=== PATIENT | male | born 1960 | race Caucasian/White ===

== ENCOUNTER 2016-06-26 23:48 | Emergency (ER) | payer OTHER ==
[~2016-06-26] VITALS: Ht 167.6 cm; Wt 90.9 kg
[~2016-06-26 23:48] MED LIST: ABILIFY; ABILIFY10 MG PO; ABILIFY15 MG PO; ABILIFY2 MG PO; ABILIFY20 MG PO; ABILIFY5 MG PO; AMLODIPINE BESYL5 MG PO; ARIPIPRAZOLE2 MG PO; ATIVAN1 MG PO; Ambien PO; BACTRIM,SEPT1 TABLET PO; BENADRYL50 MG PO; BENZTROPINE MESY1 MG PO; BUPROPION HCL100 M1 PO; BUPROPION HCL150 M2 PO; CLEOCIN150 MG PO; COGENTIN1 MG PO; CYMBALTA60 MG PO; Cyclobenzaprine Hcl PO; Cymbalta PO; DOXYCYCLINE HY100 MG PO; ENDOCET 5-3251 EACH PO; EXCEDRIN EXTRA1 EACH PO; FLEXERIL10 MG PO; FUROSEMIDE20 MG PO; Flexeril PO; HYDROCODON-ACE1 EAC9 PO; HYDROMORPHONE HC2 MG PO; INDERAL10 MG PO; KLONOPIN2 MG PO; LISINOPRIL5 MG PO; LORTAB 5-325 M1 EACH PO; LYRICA100 MG PO; LYRICA25 MG PO; Levothroid,Synthroid PO; MELOXICAM15 MG PO; MELOXICAM7.5 MG PO; METHYLPHENIDATE10 M1 PO; METHYLPHENIDATE20 MG PO; MOBIC15 MG PO; NAPROSYN500 MG PO; NORCO 5/3251 TABLET PO; ONE-A-DAY ESSE1 EAC1 PO; PANTOPRAZOLE SO40 MG PO; PROPRANOLOL; PROPRANOLOL HCL40 MG PO; QUETIAPINE FUM300 MG PO; RISPERIDONE1 MG PO; RITALIN LA40 MG PO; RITALIN-SR20 MG PO; RITALIN20 MG PO; ROPINIROLE HCL1 MG PO; ULTRAM50 MG PO; VALIUM5 MG PO; VICODIN HP 10-1 EACH PO; VICODIN HP 11 TABLET PO; VICODIN,LORT1 TABLET PO; VIIBRYD20 MG PO; VIIBRYD40 MG PO; WELLBUTRIN; WELLBUTRIN PO; WELLBUTRIN SR150 MG PO; WELLBUTRIN100 MG; WELLBUTRIN75 MG PO; XANAX1 MG PO; ZOLPIDEM TARTRA10 MG PO
[2016-06-27] MEDS ORDERED: CLEOCIN300 MG PO (01:54)
[2016-06-27] MEDS ORDERED: PERCOCET 5/31 TABLET PO (01:54)
[2016-06-27 02:55] VITALS: BP 135/82
== END 2016-06-27 02:56 | disposition home or self-care (01) ==
LOC: EME 23:48
PROC: 0H9EXZZ Drainage of Left Lower Arm Skin, External Approach (ICD-10-PCS; principal; 2016-06-26)
DX: L02.414 Cutaneous abscess of left upper limb (principal); F19.90 Other psychoactive substance use, unspecified, uncomplicated
CPT/HCPCS: 87070; 87075; 87076; 87205; 99281; 99284

== ENCOUNTER 2016-06-29 04:37 | Emergency (ER) | payer OTHER ==
[~2016-06-29] VITALS: Ht 167.6 cm; Wt 93.3 kg
[~2016-06-29 04:37] MED LIST changes: +CLEOCIN300 MG PO; +PERCOCET 5/31 TABLET PO
[2016-06-29 06:53] VITALS: BP 132/80
== END 2016-06-29 06:54 | disposition home or self-care (01) ==
LOC: EME 04:37
DX: L02.414 Cutaneous abscess of left upper limb (principal); Z48.01 Encounter for change or removal of surgical wound dressing; F11.10 Opioid abuse, uncomplicated
CPT/HCPCS: 99281; 99284

== ENCOUNTER 2016-08-31 21:35 | Emergency (ER) | payer OTHER ==
[~2016-08-31] VITALS: Ht 167.6 cm; Wt 88.0 kg
[2016-08-31 22:44] LABS: EOSINOPHIL COUNT 0.2 K/uL (0-0.3); HEMATOCRIT 46.5 % (38.0-50.0); IMMATURE GRANULOCYTE (%) 0.2 % (0.0-0.7); INSTRUMENT ABS NEUTROPHIL CT 4.2 K/uL; LYMPHOCYTE COUNT 3.8 K/uL (1.0-2.8); MCH 25.6 PG (29.0-34.0); MCHC 31.8 G/DL (30.0-36.0); MCV 80.6 FL (86-99); MONOCYTE COUNT 0.8 K/uL (0-0.8); NEUTROPHIL (%) 46.8 % (45-76); NEUTROPHIL COUNT 4.2 K/uL (1.8-6.4); RBC DIS.WIDTH-CV 14.3 % (11.8-14.6); RBC DIS.WIDTH-SD 41.7 % (39-53); RED BLOOD COUNT 5.77 M/uL (4.00-5.50); WHITE BLOOD COUNT 9.1 K/uL (4.1-10.2)
[2016-08-31 22:46] LABS: BILIRUBIN NEGATIVE; BLOOD NEGATIVE; COLOR YELLOW ((YELLOW)); GLUCOSE (STRIP) NEGATIVE; KETONES NEGATIVE; LEUKOCYTES NEGATIVE; NITRITE NEGATIVE; PROTEIN (STRIP) NEGATIVE; SPECIFIC GRAVITY 1.025 (1.000-1.030); UROBILINOGEN 0.2 MG/DL (0.2-1.0)
[2016-08-31 22:47] LABS: ADD MIUA? NO
[2016-08-31 22:55] LABS: AMPHETAMINE NEGATIVE (500 ng/mL); BARBITURATES NEGATIVE (200 ng/mL); BENZODIAZEPINES NEGATIVE (150 ng/mL); COCAINE PRESUMPTIVE POSITIVE (150 ng/mL); INTERNAL CONTROLS VALID? YES; METHADONE PRESUMPTIVE POSITIVE (200 ng/mL); METHAMPHETAMINE NEGATIVE (500 ng/mL); OPIATES (MORPHINE) PRESUMPTIVE POSITIVE (100 ng/mL); OXYCODONE NEGATIVE (100 ng/mL); PHENCYCLIDINE NEGATIVE (25 ng/mL); PROPOXYPHENE NEGATIVE (300 ng/mL); THC CANNABINOIDS PRESUMPTIVE POSITIVE (50 ng/mL); TRICYCLIC ANTIDEPRESSANTS NEGATIVE (300 ng/mL)
[2016-08-31 22:56] LABS: ADD MEDTOX COMMENT Y
[2016-08-31 22:57] LABS: CHLORIDE 106 mEq/L (99-109); POTASSIUM 4.4 mEq/L (3.7-5.4); SODIUM 141 mEq/L (136-147)
[2016-08-31 22:59] LABS: GLUCOSE 68 mg/dL (70-99)
[2016-08-31 23:00] LABS: ANION GAP 9 MEQ/L (2-14)
[2016-08-31 23:01] LABS: TOTAL BILIRUBIN 0.4 mg/dL (0.0-1.0)
[2016-08-31 23:02] LABS: ALKALINE PHOSPHATASE 101 IU/L (3-129)
[2016-08-31 23:03] LABS: GFR ESTIMATE (CALCULATED) > 59 mL/min/
[2016-08-31 23:04] LABS: UREA NITROGEN (BUN) 17 mg/dL (9-23)
[2016-08-31 23:05] LABS: CREATINE KINASE 210 IU/L (1-294)
[2016-08-31 23:56] LABS: MEAN PLAT.VOLUME 9.3 uM^3 (9.0-12.4); PLAT.SUFFICIENCY ADEQUATE; PLATELET COUNT 236 K/uL (156-360)
[2016-09-01] MEDS ORDERED: VALIUM5 MG PO (00:34)
[2016-09-01] MEDS ORDERED: KEFLEX500 MG PO (00:35)
[2016-09-01] MEDS ORDERED: BACTRIM,SEPT1 TABLET PO (00:35)
[2016-09-01 02:14] VITALS: BP 161/90
== END 2016-09-01 02:26 | disposition home or self-care (01) ==
LOC: EME 21:35
PROVIDERS: Physician Assistant
DX: L03.114 Cellulitis of left upper limb (principal); R25.2 Cramp and spasm; S40.812A Abrasion of left upper arm, initial encounter; X58.XXXA Exposure to other specified factors, initial encounter; Z91.5 Personal history of self-harm
CPT/HCPCS: 80053; 81003; 82550; 83605; 84999; 85025; 85027; 87040; 87077; 87186; 87801; 99281; 99285; J1885; J3370; J7030

== ENCOUNTER 2016-09-02 08:19 | Emergency (ER) | payer OTHER ==
[~2016-09-02] VITALS: Ht 167.6 cm; Wt 91.0 kg
[~2016-09-02 08:19] MED LIST changes: +KEFLEX500 MG PO
[2016-09-02 09:57] VITALS: BP 145/82
== END 2016-09-02 10:17 | disposition home or self-care (01) ==
LOC: EME 08:19
DX: L03.114 Cellulitis of left upper limb (principal); R78.81 Bacteremia; S50.812A Abrasion of left forearm, initial encounter; X78.9XXA Intentional self-harm by unspecified sharp object, initial encounter; F32.9 Major depressive disorder, single episode, unspecified; I10 Essential (primary) hypertension
CPT/HCPCS: 99281; 99284

== ENCOUNTER 2016-12-29 17:07 | Emergency (ER) | payer OTHER ==
[~2016-12-29] VITALS: Ht 167.6 cm; Wt 90.9 kg
[2016-12-29] MEDS ORDERED: WELLBUTRIN75 MG PO (17:23)
[2016-12-29] MEDS ORDERED: WELLBUTRIN SR150 MG PO (17:23)
[2016-12-29] MEDS ORDERED: ABILIFY2 MG PO (17:24)
[2016-12-29 17:58] LABS: EOSINOPHIL (%) 2.9 % (0-5); EOSINOPHIL COUNT 0.2 K/uL (0-0.3); HEMATOCRIT 38.1 % (38.0-50.0); IMMATURE GRANULOCYTE (%) 0.3 % (0.0-0.7); INSTRUMENT ABS NEUTROPHIL CT 3.8 K/uL; LYMPHOCYTE COUNT 2.7 K/uL (1.0-2.8); MCH 26.5 PG (29.0-34.0); MCHC 32.5 G/DL (30.0-36.0); MCV 81.4 FL (86-99); MEAN PLAT.VOLUME 9.3 uM^3 (9.0-12.4); MONOCYTE (%) 8.9 % (3-12); MONOCYTE COUNT 0.7 K/uL (0-0.8); NEUTROPHIL (%) 51.2 % (45-76); NEUTROPHIL COUNT 3.8 K/uL (1.8-6.4); PLATELET COUNT 214 K/uL (156-360); RBC DIS.WIDTH-CV 15.2 % (11.8-14.6); RBC DIS.WIDTH-SD 45.2 % (39-53); RED BLOOD COUNT 4.68 M/uL (4.00-5.50); WHITE BLOOD COUNT 7.3 K/uL (4.1-10.2)
[2016-12-29 18:05] LABS: CHLORIDE 108 mEq/L (99-109); POTASSIUM 3.7 mEq/L (3.7-5.4); SODIUM 140 mEq/L (136-147)
[2016-12-29 18:07] LABS: GLUCOSE 105 mg/dL (70-99)
[2016-12-29 18:09] LABS: ANION GAP 7 MEQ/L (2-14)
[2016-12-29 18:10] LABS: SERUM ETHYL ALCOHOL < 10 mg/dL
[2016-12-29 18:11] LABS: GFR ESTIMATE (CALCULATED) > 59 mL/min/
[2016-12-29 18:12] LABS: UREA NITROGEN (BUN) 16 mg/dL (9-23)
[2016-12-29 19:02] LABS: ADD MEDTOX COMMENT Y; AMPHETAMINE NEGATIVE (500 ng/mL); BARBITURATES NEGATIVE (200 ng/mL); BENZODIAZEPINES NEGATIVE (150 ng/mL); COCAINE NEGATIVE (150 ng/mL); INTERNAL CONTROLS VALID? YES; METHADONE NEGATIVE (200 ng/mL); METHAMPHETAMINE NEGATIVE (500 ng/mL); OPIATES (MORPHINE) PRESUMPTIVE POSITIVE (100 ng/mL); OXYCODONE NEGATIVE (100 ng/mL); PHENCYCLIDINE NEGATIVE (25 ng/mL); PROPOXYPHENE NEGATIVE (300 ng/mL); THC CANNABINOIDS PRESUMPTIVE POSITIVE (50 ng/mL); TRICYCLIC ANTIDEPRESSANTS NEGATIVE (300 ng/mL)
[2016-12-29] MEDS ORDERED: RITALIN20 MG PO (19:07)
[2016-12-29 19:43] VITALS: BP 106/61
[2016-12-30] MEDS ORDERED: VIIBRYD40 MG PO (01:50)
== END 2016-12-29 19:45 | disposition home or self-care (01) ==
LOC: EME 17:07
PROVIDERS: Emergency Medicine
DX: F34.1 Dysthymic disorder (principal); F11.20 Opioid dependence, uncomplicated; F60.9 Personality disorder, unspecified; I10 Essential (primary) hypertension; M06.9 Rheumatoid arthritis, unspecified; Z91.5 Personal history of self-harm; Z87.442 Personal history of urinary calculi
CPT/HCPCS: 80048; 84999; 85025; 90837; 99281; 99285; G0480

== ENCOUNTER 2016-12-29 23:22 | Inpatient (IN) | payer OTHER ==
[~2016-12-29] VITALS: Ht 167.6 cm; Wt 93.8 kg
[2016-12-30 00:19] LABS: HEMATOCRIT 36.1 % (38.0-50.0); MCV 81.9 FL (86-99); MEAN PLAT.VOLUME 9.4 uM^3 (9.0-12.4); PLATELET COUNT 207 K/uL (156-360); RBC DIS.WIDTH-CV 15.2 % (11.8-14.6); RBC DIS.WIDTH-SD 45.6 % (39-53); RED BLOOD COUNT 4.41 M/uL (4.00-5.50); WHITE BLOOD COUNT 8.1 K/uL (4.1-10.2)
[2016-12-30 00:34] LABS: CHLORIDE 109 mEq/L (99-109); POTASSIUM 3.7 mEq/L (3.7-5.4); SODIUM 140 mEq/L (136-147)
[2016-12-30 00:35] LABS: GLUCOSE 90 mg/dL (70-99)
[2016-12-30 00:37] LABS: ANION GAP 6 MEQ/L (2-14)
[2016-12-30 00:39] LABS: GFR ESTIMATE (CALCULATED) > 59 mL/min/; SERUM ETHYL ALCOHOL < 10 mg/dL
[2016-12-30 00:40] LABS: UREA NITROGEN (BUN) 19 mg/dL (9-23)
[2016-12-30 01:44] LABS: ADD MIUA? NO; BILIRUBIN NEGATIVE; BLOOD NEGATIVE; COLOR YELLOW ((YELLOW)); GLUCOSE (STRIP) NEGATIVE; KETONES NEGATIVE; LEUKOCYTES NEGATIVE; NITRITE NEGATIVE; PROTEIN (STRIP) NEGATIVE; UROBILINOGEN 0.2 MG/DL (0.2-1.0)
[2016-12-30 01:45] LABS: UCUL ADDED? NO
[2016-12-30] MEDS ORDERED: VIIBRYD40 MG PO (01:50)
[2016-12-30 01:52] LABS: AMPHETAMINE NEGATIVE (500 ng/mL); BARBITURATES NEGATIVE (200 ng/mL); BENZODIAZEPINES NEGATIVE (150 ng/mL); COCAINE NEGATIVE (150 ng/mL); METHADONE NEGATIVE (200 ng/mL); METHAMPHETAMINE NEGATIVE (500 ng/mL); OPIATES (MORPHINE) PRESUMPTIVE POSITIVE (100 ng/mL); OXYCODONE NEGATIVE (100 ng/mL); PHENCYCLIDINE NEGATIVE (25 ng/mL); PROPOXYPHENE NEGATIVE (300 ng/mL); THC CANNABINOIDS PRESUMPTIVE POSITIVE (50 ng/mL); TRICYCLIC ANTIDEPRESSANTS NEGATIVE (300 ng/mL)
[2016-12-30 01:53] LABS: ADD MEDTOX COMMENT Y; INTERNAL CONTROLS VALID? YES
[2016-12-30 03:24] VITALS: BP 142/95
[2016-12-30 07:48] VITALS: BP 146/82
[2016-12-30 15:14] VITALS: BP 117/75
[2016-12-31 07:57] VITALS: BP 140/82
[2016-12-31 15:42] VITALS: BP 142/88
[2017-01-01 07:57] VITALS: BP 162/74
[2017-01-01] MEDS ORDERED: ARIPIPRAZOLE10 MG PO (09:04)
[2017-01-01] MEDS ORDERED: BUPROPION HCL100 M1 PO (09:04)
== END 2017-01-01 12:46 | disposition home or self-care (01) | DRG 885 ==
LOC: EME 23:22 → 1WEST 12-30 01:39 → EDOF 12-30 01:39 → ENRESERV 12-30 03:02 → 1WEST 12-30 03:18
PROVIDERS: Emergency Medicine
DX: F33.9 Major depressive disorder, recurrent, unspecified (principal); R45.851 Suicidal ideations; F11.10 Opioid abuse, uncomplicated; F12.10 Cannabis abuse, uncomplicated; F60.9 Personality disorder, unspecified; I10 Essential (primary) hypertension; Z87.442 Personal history of urinary calculi; M06.9 Rheumatoid arthritis, unspecified; Z81.8 Family history of other mental and behavioral disorders; R45.850 Homicidal ideations
CPT/HCPCS: 80048 91; 81003; 84999; 85027; 90837; 97150 GO; 97165 GO; 99281; 99285; G0480; Q0177

== ENCOUNTER 2017-01-29 01:49 | Emergency (ER) | payer OTHER ==
[~2017-01-29] VITALS: Ht 167.6 cm; Wt 89.2 kg
[~2017-01-29 01:49] MED LIST changes: +ARIPIPRAZOLE10 MG PO
[2017-01-29 02:33] LABS: MCH 26.4 PG (29.0-34.0); MCHC 32.9 G/DL (30.0-36.0); MCV 80.5 FL (86-99); MEAN PLAT.VOLUME 8.3 uM^3 (9.0-12.4); PLATELET COUNT 399 K/uL (156-360); RBC DIS.WIDTH-CV 13.8 % (11.8-14.6); RBC DIS.WIDTH-SD 40.6 % (39-53); RED BLOOD COUNT 5.22 M/uL (4.00-5.50); WHITE BLOOD COUNT 12.9 K/uL (4.1-10.2)
[2017-01-29 02:44] LABS: CHLORIDE 104 mEq/L (99-109); POTASSIUM 3.4 mEq/L (3.7-5.4); SODIUM 138 mEq/L (136-147)
[2017-01-29 02:46] LABS: GLUCOSE 189 mg/dL (70-99)
[2017-01-29 02:48] LABS: ANION GAP 15 MEQ/L (2-14); TOTAL BILIRUBIN 0.3 mg/dL (0.0-1.0)
[2017-01-29 02:50] LABS: ALKALINE PHOSPHATASE 98 IU/L (3-129); GFR ESTIMATE (CALCULATED) > 59 mL/min/
[2017-01-29 02:51] LABS: UREA NITROGEN (BUN) 21 mg/dL (9-23)
[2017-01-29] MEDS ORDERED: BACTRIM,SEPT1 TABLET PO (05:50)
[2017-01-29] MEDS ORDERED: KEFLEX500 MG PO (05:50)
[2017-01-29 06:09] VITALS: BP 123/105
== END 2017-01-29 06:10 | disposition home or self-care (01) ==
LOC: EME 01:49
PROC: 0H9CXZZ Drainage of Left Upper Arm Skin, External Approach (ICD-10-PCS; principal; 2017-01-29)
DX: L03.113 Cellulitis of right upper limb (principal); L02.414 Cutaneous abscess of left upper limb; F19.10 Other psychoactive substance abuse, uncomplicated; M06.9 Rheumatoid arthritis, unspecified; F32.9 Major depressive disorder, single episode, unspecified; Z91.5 Personal history of self-harm; Z87.442 Personal history of urinary calculi
CPT/HCPCS: 80053; 85027; 87070; 87075; 87077; 87186; 87205; 99281; 99284

== ENCOUNTER 2017-07-22 23:51 | Emergency (ER) | payer OTHER ==
[~2017-07-22] VITALS: Ht 167.6 cm; Wt 84.8 kg
[2017-07-23 00:49] LABS: HEMATOCRIT 38.2 % (38.0-50.0); HEMOGLOBIN 12.6 G/DL (12.5-16.6); MCH 27.2 PG (29.0-34.0); MCV 82.5 FL (86-99); PLATELET COUNT 338 K/uL (156-360); RBC DIS.WIDTH-CV 13.6 % (11.8-14.6); RBC DIS.WIDTH-SD 41.1 % (39-53); RED BLOOD COUNT 4.63 M/uL (4.00-5.50); WHITE BLOOD COUNT 7.4 K/uL (4.1-10.2)
[2017-07-23 00:52] LABS: APPEARANCE SL.HAZY ((CLEAR)); BILIRUBIN NEGATIVE; BLOOD NEGATIVE; COLOR YELLOW ((YELLOW)); GLUCOSE (STRIP) NEGATIVE; KETONES NEGATIVE; LEUKOCYTES NEGATIVE; NITRITE NEGATIVE; PROTEIN (STRIP) NEGATIVE; SPECIFIC GRAVITY 1.015 (1.000-1.030); UROBILINOGEN 0.2 MG/DL (0.2-1.0)
[2017-07-23 00:59] LABS: CHLORIDE 105 mEq/L (99-109); POTASSIUM 3.8 mEq/L (3.7-5.4); SODIUM 142 mEq/L (136-147)
[2017-07-23 01:01] LABS: GLUCOSE 100 mg/dL (70-99)
[2017-07-23 01:05] LABS: CREATININE 1.2 mg/dL (0.6-1.3); GFR ESTIMATE (CALCULATED) > 59 mL/min/ (58.99-99999)
[2017-07-23 01:06] LABS: UREA NITROGEN (BUN) 17 mg/dL (9-23)
[2017-07-23 01:08] LABS: CREATINE KINASE 44 IU/L (1-294)
[2017-07-23 01:09] LABS: TROP-I INTERPRETATION NEGATIVE; TROPONIN-I < 0.01 ng/mL (0.0-0.30)
[2017-07-23 01:23] LABS: AMPHETAMINE NEGATIVE (500 ng/mL); BARBITURATES NEGATIVE (200 ng/mL); BENZODIAZEPINES NEGATIVE (150 ng/mL); BUPRENORPHINE NEGATIVE (10 ng/mL); COCAINE NEGATIVE (150 ng/mL); METHADONE NEGATIVE (200 ng/mL); METHAMPHETAMINE NEGATIVE (500 ng/mL); OPIATES (MORPHINE) PRESUMPTIVE POSITIVE (100 ng/mL); OXYCODONE NEGATIVE (100 ng/mL); PHENCYCLIDINE NEGATIVE (25 ng/mL); PROPOXYPHENE NEGATIVE (300 ng/mL); THC CANNABINOIDS PRESUMPTIVE POSITIVE (50 ng/mL); TRICYCLIC ANTIDEPRESSANTS NEGATIVE (300 ng/mL)
[2017-07-23 01:35] LABS: BACTERIA RARE /HPF; EPITHELIAL CELLS RARE /HPF; MUCUS TRACE /LPF; RED BLOOD CELLS 0-5 /HPF (0-5); UCUL ADDED? NO; WHITE BLOOD CELLS 0-5 /HPF (0-5)
[2017-07-23] MEDS ORDERED: FLEXERIL10 MG PO (03:08)
[2017-07-23 03:44] VITALS: BP 153/94
== END 2017-07-23 03:45 | disposition home or self-care (01) ==
LOC: EME 23:51
PROVIDERS: Physician Assistant
DX: M62.838 Other muscle spasm (principal); R91.1 Solitary pulmonary nodule; M06.9 Rheumatoid arthritis, unspecified; F32.9 Major depressive disorder, single episode, unspecified; Z87.39 Personal history of other diseases of the musculoskeletal system and connective tissue; Z87.442 Personal history of urinary calculi; Z98.890 Other specified postprocedural states
CPT/HCPCS: 71046; 80048; 81003; 82550; 84484; 84999; 85027; 93005; 99281; 99285; J2060; J7030

== ENCOUNTER 2017-09-19 01:31 | Emergency (ER) | payer OTHER ==
[~2017-09-19] VITALS: Ht 167.6 cm; Wt 83.1 kg
[2017-09-19 02:10] LABS: HEMATOCRIT 38.2 % (38.0-50.0); HEMOGLOBIN 12.7 G/DL (12.5-16.6); MCH 26.4 PG (29.0-34.0); MCHC 33.2 G/DL (30.0-36.0); MCV 79.4 FL (86-99); RBC DIS.WIDTH-CV 14.2 % (11.8-14.6); RED BLOOD COUNT 4.81 M/uL (4.00-5.50); WHITE BLOOD COUNT 10.9 K/uL (4.1-10.2)
[2017-09-19 02:12] LABS: PLATELET COUNT 393 K/uL (156-360)
[2017-09-19 02:22] LABS: CHLORIDE 104 mEq/L (99-109); POTASSIUM 4.1 mEq/L (3.7-5.4); SODIUM 143 mEq/L (136-147)
[2017-09-19 02:23] LABS: APPEARANCE SL.HAZY ((CLEAR)); BILIRUBIN NEGATIVE; BLOOD NEGATIVE; COLOR YELLOW ((YELLOW)); GLUCOSE (STRIP) NEGATIVE; KETONES 5; LEUKOCYTES MODERATE; NITRITE NEGATIVE; PROTEIN (STRIP) 30; SPECIFIC GRAVITY 1.029 (1.000-1.030)
[2017-09-19 02:23] LABS: GLUCOSE 116 mg/dL (70-99)
[2017-09-19 02:27] LABS: CREATININE 1.5 mg/dL (0.6-1.3); GFR ESTIMATE (CALCULATED) 52 mL/min/ (58.99-99999)
[2017-09-19 02:28] LABS: BACTERIA NONE SEEN /HPF; EPITHELIAL CELLS RARE /HPF; HYALINE CASTS 15-20 /LPF; MUCUS 1+ /LPF; UCUL ADDED? YES; WHITE BLOOD CELLS TNTC /HPF (0-5)
[2017-09-19 02:28] LABS: UREA NITROGEN (BUN) 24 mg/dL (9-23)
[2017-09-19 03:32] LABS: ALBUMIN 4.2 g/dL (3.2-4.8)
[2017-09-19 03:35] LABS: TOTAL PROTEIN 7.2 g/dL (6.4-8.3)
[2017-09-19 03:37] LABS: TOTAL BILIRUBIN 0.2 mg/dL (0.0-1.0)
[2017-09-19 03:38] LABS: ALKALINE PHOSPHATASE 101 IU/L (3-129)
[2017-09-19 03:41] LABS: ALT (GPT) 15 IU/L (3-49); AST (GOT) 12 IU/L (2-34); DIRECT BILIRUBIN 0.1 mg/dL (0.0-0.3)
[2017-09-19 03:42] LABS: LIPASE 50 U/L (1.0-51.0)
[2017-09-19] MEDS ORDERED: ZOFRAN4 MG PO (04:17)
[2017-09-19] MEDS ORDERED: NAPROSYN250 MG PO (04:17)
[2017-09-19] MEDS ORDERED: FLEXERIL10 MG PO (04:17)
[2017-09-19 04:53] VITALS: BP 121/84
== END 2017-09-19 04:56 | disposition home or self-care (01) ==
LOC: EME 01:31
DX: K52.9 Noninfective gastroenteritis and colitis, unspecified (principal); R10.32 Left lower quadrant pain; Z87.442 Personal history of urinary calculi; K40.90 Unilateral inguinal hernia, without obstruction or gangrene, not specified as recurrent; K44.9 Diaphragmatic hernia without obstruction or gangrene; N28.9 Disorder of kidney and ureter, unspecified
CPT/HCPCS: 74176; 80048; 80076; 81003; 83690; 85027; 87086; 99281; 99284

== ENCOUNTER 2017-09-22 16:01 | Emergency (ER) | payer OTHER ==
[~2017-09-22] VITALS: Ht 167.6 cm; Wt 84.1 kg
[~2017-09-22 16:01] MED LIST changes: +NAPROSYN250 MG PO; +ZOFRAN4 MG PO
[2017-09-22 16:40] LABS: APPEARANCE CLEAR ((CLEAR)); BILIRUBIN NEGATIVE; BLOOD NEGATIVE; COLOR YELLOW ((YELLOW)); GLUCOSE (STRIP) NEGATIVE; KETONES NEGATIVE; LEUKOCYTES NEGATIVE; NITRITE NEGATIVE; PROTEIN (STRIP) 30; SPECIFIC GRAVITY 1.027 (1.000-1.030); UROBILINOGEN 0.2 MG/DL (0.2-1.0)
[2017-09-22 17:02] LABS: HEMATOCRIT 38.8 % (38.0-50.0); HEMOGLOBIN 12.7 G/DL (12.5-16.6); MCH 26.3 PG (29.0-34.0); MCHC 32.7 G/DL (30.0-36.0); MCV 80.5 FL (86-99); PLATELET COUNT 350 K/uL (156-360); RBC DIS.WIDTH-CV 14.5 % (11.8-14.6); RBC DIS.WIDTH-SD 42.5 % (39-53); RED BLOOD COUNT 4.82 M/uL (4.00-5.50); WHITE BLOOD COUNT 7.3 K/uL (4.1-10.2)
[2017-09-22 17:09] VITALS: BP 154/92
[2017-09-22 17:11] LABS: CHLORIDE 102 mEq/L (99-109); POTASSIUM 3.8 mEq/L (3.7-5.4); SODIUM 141 mEq/L (136-147)
[2017-09-22 17:13] LABS: GLUCOSE 91 mg/dL (70-99)
[2017-09-22 17:16] LABS: GFR ESTIMATE (CALCULATED) > 59 mL/min/ (58.99-99999); SERUM ETHYL ALCOHOL < 10 mg/dL
[2017-09-22 17:17] LABS: CREATININE 0.9 mg/dL (0.6-1.3); UREA NITROGEN (BUN) 13 mg/dL (9-23)
[2017-09-22 17:31] LABS: AMPHETAMINE NEGATIVE (500 ng/mL); BARBITURATES NEGATIVE (200 ng/mL); BENZODIAZEPINES PRESUMPTIVE POSITIVE (150 ng/mL); BUPRENORPHINE NEGATIVE (10 ng/mL); COCAINE PRESUMPTIVE POSITIVE (150 ng/mL); METHADONE NEGATIVE (200 ng/mL); METHAMPHETAMINE NEGATIVE (500 ng/mL); OPIATES (MORPHINE) NEGATIVE (100 ng/mL); OXYCODONE NEGATIVE (100 ng/mL); PHENCYCLIDINE NEGATIVE (25 ng/mL); PROPOXYPHENE NEGATIVE (300 ng/mL); THC CANNABINOIDS PRESUMPTIVE POSITIVE (50 ng/mL); TRICYCLIC ANTIDEPRESSANTS NEGATIVE (300 ng/mL)
[2017-09-22 18:10] LABS: BENZODIAZEPINES, URINE SCREEN Negative (200 ng/mL)
== END 2017-09-22 17:10 | disposition home or self-care (01) ==
LOC: EME 16:01
PROVIDERS: Nurse Practitioner Family
DX: R45.851 Suicidal ideations (principal); F34.1 Dysthymic disorder; F41.9 Anxiety disorder, unspecified; F60.9 Personality disorder, unspecified; F11.20 Opioid dependence, uncomplicated; Z04.6 Encounter for general psychiatric examination, requested by authority; M06.9 Rheumatoid arthritis, unspecified
CPT/HCPCS: 80048; 81003; 84999; 85027; 99281; 99285; G0480

== ENCOUNTER 2017-09-23 16:19 | Emergency (ER) | payer OTHER ==
[~2017-09-23] VITALS: Ht 167.6 cm; Wt 81.0 kg
[2017-09-23 16:59] LABS: BASOPHIL (%) 0.5 % (0-1); EOSINOPHIL (%) 1.9 % (0-5); EOSINOPHIL COUNT 0.2 K/uL (0-0.3); HEMATOCRIT 38.8 % (38.0-50.0); HEMOGLOBIN 12.8 G/DL (12.5-16.6); IMMATURE GRANULOCYTE (%) 0.4 % (0.0-0.7); LYMPHOCYTE (%) 37.2 % (15-42); LYMPHOCYTE COUNT 3.1 K/uL (1.0-2.8); MCH 26.4 PG (29.0-34.0); MONOCYTE (%) 7.8 % (3-12); MONOCYTE COUNT 0.7 K/uL (0-0.8); NEUTROPHIL (%) 52.2 % (45-76); NEUTROPHIL COUNT 4.3 K/uL (1.8-6.4); PLATELET COUNT 322 K/uL (156-360); RBC DIS.WIDTH-CV 14.6 % (11.8-14.6); RBC DIS.WIDTH-SD 42.3 % (39-53); RED BLOOD COUNT 4.85 M/uL (4.00-5.50); WHITE BLOOD COUNT 8.3 K/uL (4.1-10.2)
[2017-09-23 17:11] LABS: CHLORIDE 104 mEq/L (99-109); POTASSIUM 4.2 mEq/L (3.7-5.4); SODIUM 138 mEq/L (136-147)
[2017-09-23 17:13] LABS: GLUCOSE 99 mg/dL (70-99)
[2017-09-23 17:16] LABS: SERUM ETHYL ALCOHOL < 10 mg/dL
[2017-09-23 17:17] LABS: CREATININE 0.9 mg/dL (0.6-1.3); GFR ESTIMATE (CALCULATED) > 59 mL/min/ (58.99-99999)
[2017-09-23 17:18] LABS: UREA NITROGEN (BUN) 14 mg/dL (9-23)
[2017-09-23 17:21] LABS: AMPHETAMINE NEGATIVE (500 ng/mL); COCAINE NEGATIVE (150 ng/mL); METHAMPHETAMINE NEGATIVE (500 ng/mL); OPIATES (MORPHINE) NEGATIVE (100 ng/mL); PHENCYCLIDINE NEGATIVE (25 ng/mL); THC CANNABINOIDS PRESUMPTIVE POSITIVE (50 ng/mL)
[2017-09-23 17:22] LABS: BARBITURATES NEGATIVE (200 ng/mL); BENZODIAZEPINES PRESUMPTIVE POSITIVE (150 ng/mL); BUPRENORPHINE NEGATIVE (10 ng/mL); METHADONE NEGATIVE (200 ng/mL); OXYCODONE NEGATIVE (100 ng/mL); PROPOXYPHENE NEGATIVE (300 ng/mL); TRICYCLIC ANTIDEPRESSANTS NEGATIVE (300 ng/mL)
[2017-09-23 17:54] LABS: BENZODIAZEPINES, URINE SCREEN Negative (200 ng/mL)
[2017-09-23 22:15] VITALS: BP 125/79
== END 2017-09-23 22:10 ==
LOC: EME 16:19
PROVIDERS: Emergency Medicine
DX: F34.1 Dysthymic disorder (principal); F60.9 Personality disorder, unspecified; F11.20 Opioid dependence, uncomplicated; F12.20 Cannabis dependence, uncomplicated; Z04.6 Encounter for general psychiatric examination, requested by authority; M06.9 Rheumatoid arthritis, unspecified
CPT/HCPCS: 80048; 84999; 85025; 90837; 99281; 99285; G0480